=== PATIENT | male | born 1985 | race American Indian/Alaskan Native ===

== ENCOUNTER 2017-08-22 09:25 | Emergency (ER) | payer MEDICAID ==
[2017-08-22] MEDS ORDERED: LORazepam 2 MG/ML Syringe IM ONE (09:34)
--- NOTE | 2017-08-22 09:34 | EDM.PDOCBH ---
ED HPI GENERAL MEDICAL PROBLEM - General Chief Complaint: Behavioral/Psych Stated Complaint: IN BY AMBULANCE Time Seen by Provider: 08/22/17 09:29 Source of Information: Reports: Patient, EMS, EMS Notes Reviewed, Police, RN, RN Notes Reviewed History Limitations: Reports: No Limitations - History of Present Illness INITIAL COMMENTS - FREE TEXT/NARRATIVE: Pt presents to the ER per [facility] with c/o anxiety. He states he showed up for court and became very anxious, felt his heart begin racing and his thoughts were "all over". He states he could not settle himself down. Patient denies chest pain or SOB. He admits to using meth 3 days ago, but does not think that is a contributing factor. Patient states he is prone to anxiety attacks. Onset: Today, Sudden - Related Data Allergies Allergy/AdvReac Type Severity Reaction Status Date / Time No Known Allergies Allergy Verified 06/16/15 10:28 Home Meds: Home Meds hydrOXYzine HCl [hydrOXYzine] 2 tab PO ASDIRECTED PRN 08/22/17 [History] Past Medical History - Past Health History Medical/Surgical History: Denies Medical/Surgical History - Infectious Disease History Infectious Disease History: Reports: Chicken Pox ED ROS GENERAL - Review of Systems Review Of Systems: ROS reveals no pertinent complaints other than HPI. ED EXAM, BEHAVIORAL HEALTH - Physical Exam Exam: See Below Exam Limited By: No Limitations General Appearance: Alert, WD/WN, Anxious, Mild Distress Eye Exam: Bilateral Eye: Conjunctival Injection, EOMI Ears: Normal External Exam, Hearing Grossly Normal Nose: Normal Inspection Throat/Mouth: Normal Inspection, Normal Voice, No Airway Compromise Head: Atraumatic, Normocephalic Neck: Normal Inspection, Supple, Non-Tender, Full Range of Motion Respiratory/Chest: No Respiratory Distress, Lungs Clear, Normal Breath Sounds, No Accessory Muscle Use, Chest Non-Tender Cardiovascular: Normal Peripheral Pulses, Regular Rate, Rhythm, No Edema, No Gallop, No JVD, No Murmur, No Rub, Tachycardia GI/Abdominal: Normal Bowel Sounds, Soft, Non-Tender, No Organomegaly, No Distention (Male) Exam: Deferred Rectal (Males) Exam: Deferred Back Exam: Normal Inspection, Full Range of Motion Extremities: Normal Inspection, Normal Range of Motion, Non-Tender, Normal Capillary Refill, No Pedal Edema Neurological: Alert, Normal Mood/Affect, CN II-XII Intact, Normal Cognition, Normal Gait, Normal Reflexes, No Motor/Sensory Deficits, Oriented x 3 Psychiatric: Alert, Normal Cognition, Oriented, Restless, Agitated Skin Exam: Warm, Dry, Intact, Normal color, No rash COURSE, BEHAVIORAL HEALTH COMP - Course Vital Signs: Last Vital Signs Temp 98.9 F 08/22/17 09:22 Pulse 117 H 08/22/17 10:23 Resp 18 08/22/17 10:23 BP 159/100 H 08/22/17 10:23 Pulse Ox 99 08/22/17 10:23 Orders, Labs, Meds: Medications Discontinued Medications Generic Name Dose Route Start Last Admin Trade Name Freq PRN Reason Stop Dose Admin Alprazolam 0.5 mg 08/22/17 10:18 08/22/17 10:25 Xanax PO 08/22/17 10:19 0.5 mg ONETIME ONE Administration Lorazepam 1 mg 08/22/17 09:34 08/22/17 09:43 Ativan IM 08/22/17 09:35 1 mg ONETIME ONE Administration Departure - Departure Time of Disposition: 10:28 Disposition: Home, Self-Care 01 Condition: Fair Clinical Impression: Anxiety, Panic disorder - Discharge Information Instructions: Generalized Anxiety Disorder, Adult, Panic Attack, [id number], Social Anxiety Disorder, Adult, Living With Anxiety Forms: ED Department Discharge Additional Instructions: Follow up with your primary care facility for prescription of medications for anxiety. Seek counseling for severe anxiety through the [facility].
[2017-08-22] MEDS ORDERED: ALPRAZolam 0.5 MG Tab PO ONE (10:18)
[2017-08-22 10:24] VITALS: BP 159/100
== END 2017-08-22 10:38 | disposition home or self-care (01) ==
LOC: DL.ED 09:25
DX: F41.0 Panic disorder [episodic paroxysmal anxiety] (principal)
CPT/HCPCS: 96372; 99283; A9270; J2060

== ENCOUNTER 2019-07-26 15:52 | Emergency (ER) | payer MEDICAID | END 2019-07-26 16:39 | disposition left against medical advice (07) | LOC: DL.ED 15:52 | DX: Z53.21 Procedure and treatment not carried out due to patient leaving prior to being seen by health care provider (principal) ==

== ENCOUNTER 2020-10-10 13:23 | Emergency (ER) | payer OTHER, MEDICAID ==
[2020-10-10 13:37] VITALS: BP 149/98; PULSE 116
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
== END 2020-10-10 15:54 ==
LOC: DL.ED 13:23
DX: S06.0X0A Concussion without loss of consciousness, initial encounter (principal); M79.671 Pain in right foot; M79.641 Pain in right hand; M79.642 Pain in left hand; A60.00 Herpesviral infection of urogenital system, unspecified; F15.10 Other stimulant abuse, uncomplicated; F12.10 Cannabis abuse, uncomplicated; Z72.0 Tobacco use; V03.99XA Pedestrian with other conveyance injured in collision with car, pick-up truck or van, unspecified whether traffic or nontraffic accident, initial encounter
CPT/HCPCS: 70450; 73130-50; 73630-RT; 80305-QW; 81001; 99284; 99284-25

== ENCOUNTER 2022-07-15 17:19 | Emergency (ER) | payer MEDICAID ==
[2022-07-15] MEDS ORDERED: Lidocaine 2% Viscous Solution 15 ML UD PO ONE (17:20)
[2022-07-15 18:09] VITALS: BP 129/105; PULSE 110
[2022-07-15] MEDS ORDERED: Bupivacaine 0.5% 30 ML SDV ONE (18:12)
[2022-07-15] MEDS ORDERED: Bupivacaine 0.5% 30 ML SDV INJECT ONE (18:14)
[2022-07-15] MEDS ORDERED: Clindamycin HCl 150 MG Cap PO ONE (18:38)
[2022-07-15] MEDS ORDERED: Lidocaine 2% Viscous Solution 15 ML UD ONE (19:03)
== END 2022-07-15 19:09 | disposition home or self-care (01) ==
LOC: DL.ED 17:19
DX: K08.89 Other specified disorders of teeth and supporting structures (principal); K21.9 Gastro-esophageal reflux disease without esophagitis; Z79.899 Other long term (current) drug therapy
CPT/HCPCS: 64400; 99282; A9270; J3490

== ENCOUNTER 2022-09-09 18:11 | Emergency (ER) | payer MEDICAID ==
[2022-09-09 18:41] VITALS: BP 143/101; PULSE 104
[2022-09-09] MEDS ORDERED: Take Home: Lidocaine 2% Viscous Solution 15 ML UD, 2 Cup Pack PO ONE (18:48)
[2022-09-09] MEDS ORDERED: Take Home: Amoxicillin/Clavulanate K 875-125 MG Tab, 6 Tab Pack PO ONE (18:48)
== END 2022-09-09 19:06 | disposition home or self-care (01) ==
LOC: DL.ED 18:11
DX: K02.9 Dental caries, unspecified (principal); K21.9 Gastro-esophageal reflux disease without esophagitis; Z79.899 Other long term (current) drug therapy
CPT/HCPCS: 99282; A9270-GY

== ENCOUNTER 2023-05-13 11:09 | Emergency (ER) | payer MEDICAID ==
[2023-05-13 11:31] VITALS: BP 112/86; PULSE 93
[2023-05-13] MEDS: Ketorolac 30 MG/ML SDV IM ONE (11:38)
== END 2023-05-13 12:52 | disposition home or self-care (01) ==
LOC: DL.ED 11:09
DX: M25.512 Pain in left shoulder (principal); W00.9XXA Unspecified fall due to ice and snow, initial encounter
CPT/HCPCS: 73030; 96372; 99283; J1885

== ENCOUNTER 2023-06-18 13:10 | Emergency (ER) | payer MEDICAID ==
[2023-06-18 13:19] VITALS: BP 126/100; PULSE 100
[2023-06-18] MEDS: Lidocaine 2% with EPINEPHrine 1:200,000 20 ML SDV INJECT ONE (13:50)
[2023-06-18] MEDS: Take Home: Amoxicillin 500 MG, 6 Cap Pack PO ONE (14:46)
== END 2023-06-18 14:50 | disposition home or self-care (01) ==
LOC: DL.ED 13:10
DX: K01.1 Impacted teeth (principal); K02.9 Dental caries, unspecified; K21.9 Gastro-esophageal reflux disease without esophagitis; Z79.899 Other long term (current) drug therapy
CPT/HCPCS: 64400; 99282; A9270; J3490

== ENCOUNTER 2023-06-20 16:24 | Emergency (ER) | payer MEDICAID ==
[2023-06-20 16:58] VITALS: BP 137/113; PULSE 105
[2023-06-20] MEDS: Bupivacaine 0.25% 10 ML SDV INJECT ONE (16:58)
[2023-06-20] MEDS: Lidocaine 2% Viscous Solution 15 ML UD PO ONE (17:00)
[2023-06-20] MEDS: Take Home: Lidocaine 2% Viscous Solution 15 ML UD, 2 Cup Pack PO ONE (17:11)
== END 2023-06-20 17:15 | disposition home or self-care (01) ==
LOC: DL.ED 16:24
DX: K08.89 Other specified disorders of teeth and supporting structures (principal); K21.9 Gastro-esophageal reflux disease without esophagitis; Z79.899 Other long term (current) drug therapy
CPT/HCPCS: 64400; 99282; A9270; J3490

== ENCOUNTER 2023-08-12 16:56 | Emergency (ER) | payer MEDICAID ==
[2023-08-12 17:10] VITALS: BP 126/87; PULSE 81
== END 2023-08-12 17:18 | disposition home or self-care (01) ==
LOC: DL.ED 16:56
DX: K01.1 Impacted teeth (principal); K21.9 Gastro-esophageal reflux disease without esophagitis; Z79.899 Other long term (current) drug therapy
CPT/HCPCS: 99282

== ENCOUNTER 2024-08-14 11:06 | Emergency (ER) | payer OTHER, MEDICAID ==
[2024-08-14 11:26] VITALS: BP 143/82; PULSE 91
[2024-08-14] MEDS: Diphtheria,Pertussis(Acell),Tetanus Vaccine 0.5 ML Syringe IM ONE (11:34)
[2024-08-14] MEDS: Bacitracin Oint 1 GM U/D Packet TOP ONE (11:34)
[2024-08-14] MEDS: Lidocaine 1% 5 ML VIAL INJECT ONE (11:34)
== END 2024-08-14 12:10 | disposition home or self-care (01) ==
LOC: DL.ED 11:06
DX: S81.012A Laceration without foreign body, left knee, initial encounter (principal); Z79.899 Other long term (current) drug therapy; V19.9XXA Pedal cyclist (driver) (passenger) injured in unspecified traffic accident, initial encounter
CPT/HCPCS: 12002; 90471; 90715; 99282; A9270; J2003

== ENCOUNTER 2024-08-25 10:08 | Emergency (ER) | payer MEDICAID ==
[2024-08-25] MEDS: Ondansetron 4 MG/2 ML SDV IVPUSH ONE (10:23)
[2024-08-25] MEDS: Sodium Chloride 0.9% 10 ML Syringe FLUSH PRN (10:23)
[2024-08-25] MEDS: LORazepam 2 MG/ML SDV IVPUSH ONE (10:23)
[2024-08-25 10:31] LABS: BASOPHILS PERCENT AUTO 0.7 % (0.0-1.0); EOSINOPHILS PERCENT AUTO 0.7 % (1.0-3.0); HEMATOCRIT 46.9 % (40.0-54.0); HEMOGLOBIN 15.8 g/dL (14.0-18.0); LYMPHOCYTES PERCENT AUTO 21.6 % (20.5-50.1); MEAN CORPUSCULAR HEMOGLOBIN 31.5 pg (27.0-34.0); MEAN CORPUSCULAR HGB CONC 33.7 g/dL (33.0-35.0); MEAN CORPUSCULAR VOLUME 93.4 fL (80-100); MONOCYTES PERCENT AUTO 7.1 % (2-8); NEUTROPHILS PERCENT AUTO 69.9 % (42.2-75.2); PLATELET COUNT,PLT 286 10^3/uL (150-450); RED BLOOD CELL COUNT 5.02 10^6/uL (4.6-6.2); WHITE BLOOD CELL COUNT,WBC 13.6 10^3/uL (5.0-10.0)
[2024-08-25] MEDS: Haloperidol Lactate 5 MG/ML SDV IVPUSH ONE (10:54)
[2024-08-25] MEDS: Sodium Chloride 0.9% 1,000 ML IV ONE ×2 (10:57→12:02)
[2024-08-25] MEDS: Metoclopramide 10 MG/2 ML SDV IVPUSH ONE (10:58)
[2024-08-25 11:03] LABS: ALANINE AMINOTRANSFERASE,ALT 137 U/L (16-63); ALBUMIN 4.4 g/dL (3.4-5.0); ALKALINE PHOSPHATASE 115 U/L (46-116); ANION GAP 26.4 mEq/L (7-13); ASPARTATE AMNIOTRANSFERASE,AST 105 U/L (15-37); BILIRUBIN TOTAL 0.7 mg/dL (0.2-1.0); BLOOD UREA NITROGEN,BUN 21 mg/dL (7-18); BUN/CREATININE RATIO 11.7 (No establ ref range); CALCIUM 9.9 mg/dL (8.5-10.1); CARBON DIOXIDE,CO2 16 mmol/L (21-32); CHLORIDE,CL 100 mmol/L (98-107); GLUCOSE RANDOM 181 mg/dL (70-99); LIPASE 44 U/L (16-77); MAGNESIUM 3.2 mg/dL (1.8-2.4); POTASSIUM,K 4.4 mmol/L (3.5-5.1); PROTEIN TOTAL,TP 8.8 g/dL (6.4-8.2); SODIUM,NA 138 mmol/L (136-145)
[2024-08-25 11:04] LABS: ESTIMATED GFR 49 mL/min (>=60); ETHANOL BLOOD MEDICAL < 3 mg/dL (0)
[2024-08-25 11:05] LABS: INR 0.9 (0.9-1.2); PROTHROMBIN TIME 9.9 SEC (9.0-12.0)
[2024-08-25 12:25] VITALS: BP 143/84; PULSE 106
[2024-08-25 14:16] LABS: AMPHETAMINES,URINE POSITIVE (NEGATIVE); BARBITURATES,URINE NEGATIVE (NEGATIVE); BENZODIAZEPINE,URINE POSITIVE (NEGATIVE); MDMA (ECSTASY), URINE NEGATIVE (NEGATIVE); METHADONE,URINE NEGATIVE (NEGATIVE); METHAMPHETAMINES,URINE POSITIVE (NEGATIVE); OPIATES,URINE NEGATIVE (NEGATIVE); OXYCODONE,URINE NEGATIVE (NEGATIVE); PHENCYCLIDINE,URINE NEGATIVE (NEGATIVE); TCA,URINE NEGATIVE (NEGATIVE)
== END 2024-08-25 14:40 | disposition home or self-care (01) ==
LOC: DL.ED 10:08
DX: R56.9 Unspecified convulsions (principal); R79.89 Other specified abnormal findings of blood chemistry; K21.9 Gastro-esophageal reflux disease without esophagitis; N17.9 Acute kidney failure, unspecified; Z79.899 Other long term (current) drug therapy
CPT/HCPCS: 36415; 70450; 80053; 80305; 80307; 82947; 83605; 83690; 83735; 84484; 85025; 85610; 93005; 96361; 96374; 96375; 99285; J1630; J2060; J2405; J2765; J7030; 93010; 99284

== ENCOUNTER 2025-02-11 08:50 | Emergency (ER) | payer MEDICAID ==
[2025-02-11 09:22] VITALS: BP 136/71
[2025-02-11 09:32] VITALS: PULSE 76
== END 2025-02-11 10:32 | disposition home or self-care (01) ==
LOC: DL.ED 08:50
DX: J98.8 Other specified respiratory disorders (principal); K21.9 Gastro-esophageal reflux disease without esophagitis; Z79.899 Other long term (current) drug therapy
CPT/HCPCS: 71046; 87081; 87428; 87430; 94640; 99283; 99285; J7620; A9270-GY